=== PATIENT | female | born 1940 | race Hispanic/Latino ===

== ENCOUNTER 2019-04-30 16:28 | Observation (INO) | payer MEDICARE ==
[~2019-04-30] VITALS: Ht 162.6 cm; Wt 88.5 kg
[2019-04-30] MEDS ORDERED: SODIUM CHLORIDE 0.9% 1000ML 500 ML IV STA (16:49)
[2019-04-30 17:26] LABS: BASOPHILS % 0.1 % (0.0-1.0); HEMATOCRIT 39.6 % (34.2-44.1); HEMOGLOBIN 13.4 g/dL (12.0-16.0); LYMPHOCYTES % 6.3 % (18.0-39.1); MEAN CORPUSCULAR HGB CONC 33.8 g/dL (31-35); MEAN CORPUSCULAR VOLUME 91.7 fL (81-99); MONOCYTES # (AUTO) 0.7 (0.2-0.8); MONOCYTES % 4.5 % (4.4-11.3); NEUTROPHILS # (AUTO) 14.2 (2.1-6.9); PLATELET COUNT 261 x10e3/uL (140-360); RED BLOOD COUNT 4.32 x10e6/uL (3.6-5.1); RED CELL DISTRIBUTION WIDTH 11.9 % (11.7-14.4)
[2019-04-30 17:27] LABS: BILIRUBIN,URINE NEGATIVE (NEGATIVE); CLARITY,URINE CLEAR (CLEAR); COLOR,URINE YELLOW (YELLOW); KETONES,URINE NEGATIVE (NEGATIVE); LEUKOCYTE ESTERASE ,URINE NEGATIVE (NEGATIVE); NITRITE,URINE NEGATIVE (NEGATIVE); PROTEIN,URINE DIPSTICK NEGATIVE (NEGATIVE); URINE UROBILINOGEN 0.2 mg/dL (0.2 - 1)
[2019-04-30 17:32] LABS: INR 0.94; PROTHROMBIN TIME 13.1 seconds (11.9-14.5)
[2019-04-30 17:33] LABS: PARTIAL THROMBOPLASTIN TIME 25.9 seconds (23.8-35.5)
--- NOTE | 2019-04-30 17:35 | Diagnostic Imaging Report ---
A single frontal view of the chest. HISTORY: Hypertension COMPARISON: None available. DISCUSSION: Portable technique, limits sensitivity of the exam. Soft tissue attenuation further limits sensitivity of the exam. Tubes/Lines: None Lungs and pleura: No evidence of a consolidative pneumonia or pulmonary alveolar edema. No definite pleural effusion or pneumothorax is identified. Mild eventration versus elevation of the left hemidiaphragm with minimal adjacent atelectasis. Heart and mediastinum: The cardiomediastinal silhouette appear(s) unremarkable. Bones and soft tissues: Appear unremarkable, given this limited exam. IMPRESSION: 1. Mild eventration versus elevation of the left hemidiaphragm with minimal adjacent atelectasis. 2. Otherwise, no acute radiographic abnormality. Signed by: Dr. Jony Ibarra D.O., M.M.M. on 04/30/2019 5:31 PM
[2019-04-30 17:38] LABS: BACTERIA,URINE MODERATE /HPF; EPITHELIAL CELLS,URINE MODERATE /LPF; RBC,URINE 0-5 /HPF (0-5)
[2019-04-30 17:43] LABS: ALANINE AMINOTRANSFERASE 17 IU/L (0-55); ALBUMIN 4.3 g/dL (3.5-5.0); ALBUMIN/GLOBULIN RATIO 1.1 (0.8-2.0); ALKALINE PHOSPHATASE 125 IU/L (40-150); ANION GAP 18.7 mmol/L (8-16); BLOOD UREA NITROGEN 32 mg/dL (7-26); BUN/CREATININE RATIO 36 (6-25); CALCIUM 10.2 mg/dL (8.4-10.2); CARBON DIOXIDE 23 mmol/L (22-29); CHLORIDE 99 mmol/L (98-107); CREATINE KINASE 162 IU/L (29-168); EST GLOMERULAR FILTRATION RATE > 60 ML/MIN (60-); GLUCOSE 163 mg/dL (74-118); POTASSIUM 3.7 mmol/L (3.5-5.1); SODIUM 137 mmol/L (136-145)
--- NOTE | 2019-04-30 17:56 | Diagnostic Imaging Report ---
History:Hypertension Comparison studies:None Technique: Axial images were obtained from the skull base to the vertex. Coronal and sagittal images reconstructed from the axial data. Intravenous contrast: None Dose modulation, iterative reconstruction, and/or weight based adjustment of the mA/kV was utilized to reduce the radiation dose to as low as reasonably achievable. Findings: Scalp/skull: No abnormalities. Extra-axial spaces: No masses. No fluid collections. Brain sulci: Mildly prominent. Ventricles: Mild compensatory dilatation. No hydrocephalus. Parenchyma: Punctate calcification at the right superior temporal gyrus. Few hypodensities of the periventricular deep white matter, nonspecific and most commonly seen with mild chronic microvascular ischemic changes. No masses, hemorrhage, acute or chronic cortical vascular insults. Sellar/suprasellar region: No abnormalities. Craniocervical junction: Patent foramen magnum. No Chiari one malformation. Incidental findings: Atherosclerotic calcifications in the carotid siphons . Impression: No acute abnormalities. Chronic findings: 1. Mild supratentorial white matter small vessel ischemic changes. Signed by: DR Roger Lund M.D. on 04/30/2019 5:52 PM
[2019-04-30 18:03] LABS: THYROID STIMULATING HORMONE 0.415 uIU/mL (0.350-4.940)
[2019-04-30] MEDS ORDERED: CEFTRIAXONE SOD 1 GM/NS 50 ML 50 ML IV ONE (18:29)
[2019-04-30] MEDS ORDERED: ONDANSETRON HCL INJ 2MG/ML 2ML 2 MG/ML VIAL IV PRN (18:45)
[2019-04-30] MEDS ORDERED: CEFTRIAXONE SOD 1 GM/NS 50 ML 50 ML IV SCH (18:45)
[2019-04-30] MEDS ORDERED: MORPHINE SULFATE 2 MG/ML SYR 1ML IV PRN (18:45)
--- OUTSIDE RECORDS SUMMARY | 2019-04-30 19:04 | XMS REPORT ---
Author Author [facility] Address Unknown Phone Unavailable Care Team Providers Care [place] Supervisor Name Role Phone KUSUM JACKSON Unavailable Unavailable Problems This patient has no known problems. Allergies, Adverse Reactions, Alerts This patient has no known allergies or adverse reactions. Medications This patient has no known medications. Results Test Description Test Time Test Comments Text Results Atomic Results Result Comments CT BRAIN WO 2019-04-30 17:45:00 [place] [id number] [place] [id number] Patient Name: SOFY JACKSON MR #: [id number] : 1940 Age/Sex: 78/F Req #: [id number] Adm Physician: Ordered by: KUSUM JACKSON MD, MD Report #: [id number] Location: ER Room/Bed: Procedure: [id number] CT/CT BRAIN WO Exam Date: 04/30/19 Exam Time: 1707 REPORT STATUS: Signed History:Hypertension Comparison studies:None Technique: Axial images were obtained from the skull base to the vertex. Coronal and sagittal images reconstructed from the axial data. Intravenous contrast: None Dose modulation, iterative reconstruction, and/or weight based adjustment of the mA/kV was utilized to reduce the radiation dose to as low as reasonably achievable. Findings: Scalp/skull: No abnormalities. Extra- axial spaces: No masses. No fluid collections. Brain sulci: Mildly prominent. Ventricles: Mild compensatory dilatation. No hydrocephalus. Parenchyma: Punctate calcification at the right superior temporal gyrus. Few hypodensities of the periventricular deep white matter, nonspecific and most commonly seen with mild chronic microvascular ischemic changes. No masses, hemorrhage, acute or chronic cortical vascular insults. Sellar/suprasellar region: No abnormalities. Craniocervical junction: Patent foramen magnum. No Chiari one malformation. Incidental findings: Atherosclerotic calcifications in the carotid siphons . Impression: No acute abnormalities. Chronic findings: 1. Mild supratentorial white matter small vessel ischemic changes. Signed by: DR Roger Lund M.D. on 04/30/2019 5:52 PM Dictated By: ROGER HOANG MD 51 Transcribed By: BEVERLY on 04/30/191751 COPY TO: KUSUM JACKSON CHEST SINGLE (PORTABLE) 2019-04-30 17:21:00 [place] [id number] Patient Name: SOFY JACKSON MR #: [id number] : 1940 Age/Sex: 78/F Req #: [id number] Adm Physician: Ordered by: KUSUM JACKSON MD, MD Report #: [id number] Location: ER Room/Bed: Procedure: [id number] DX/CHEST SINGLE (PORTABLE) Exam Date: 04/30/19 Exam Time: 1713 REPORT STATUS: Signed A single frontal view of the chest. HISTORY: Hypertension COMPARISON: None available. DISCUSSION: Portable technique, limits sensitivity of the exam. Soft tissue attenuation further limits sensitivity of the exam. Tubes/Lines: None Lungs and pleura: No evidence of a consolidative pneumonia or pulmonary alveolar edema. No definite pleural effusion or pneumothorax is identified. Mild eventration versus elevation of the left hemidiaphragm with minimal adjacent atelectasis. Heart and mediastinum: The cardiomediastinal silhouette appear(s) unremarkable. Bones and soft tissues: Appear unremarkable, given this limited exam. IMPRESSION: 1. Mild eventration versus elevation of the left hemidiaphragm with minimal adjacent atelectasis. 2. Otherwise, no acute radiographic abnormality. Signed by: Dr. Royal Ibarra D.O., M.M.M. on 04/30/2019 5:31 PM Dictated By: ROYAL IBARRA DO 173 Transcribed By: AVRIL CLEANING on 04/30/191730 COPY TO: KUSUM JACKSON
[2019-04-30] MEDS: FAMOTIDINE 20 MG/2 ML VIAL IV SCH (19:18)
[2019-04-30] MEDS: ACETAMINOPHEN 325 MG TAB PO PRN (19:19)
[2019-04-30] MEDS: METOPROLOL TARTRATE 25 MG TAB PO SCH (19:19)
[2019-04-30] MEDS ORDERED: PRAVASTATIN SOD40 MG PO (19:29)
[2019-04-30] MEDS ORDERED: LOSARTAN-HCTZ1 EACH PO (19:29)
[2019-04-30] MEDS ORDERED: VERAPAMIL ER120 M1 PO (19:29)
--- NOTE | 2019-04-30 19:50 | NUR ---
Report received from MOISES clark. Patient admitted in unit @2007 by alban. Patient alert/orientedx3 Korean speaking only. Denied pain and no SOB. No respiratory distress noted. Respiration even and unlabored. Head to toe assessment completed. No skin breakdown noted. Families at the bedside. Bed in lower position and locked. Call fatima within reach. Patient and family instructed to call for help as needed. Will continue to monitor.
[2019-04-30 20:31] VITALS: BP 139/73
[2019-04-30 21:00] VITALS: BP 139/73
[2019-04-30 22:23] VITALS: BP 139/73
[2019-04-30 23:31] VITALS: BP 138/73
[2019-05-01 02:12] LABS: CREATINE KINASE MB 3.6 ng/mL (0-5.0)
[2019-05-01] MEDS: ACETAMINOPHEN 325 MG TAB PO PRN (03:39)
[2019-05-01 03:53] VITALS: BP 131/77
[2019-05-01 05:34] LABS: BASOPHILS % 0.1 % (0.0-1.0); HEMATOCRIT 33.8 % (34.2-44.1); HEMOGLOBIN 11.1 g/dL (12.0-16.0); LYMPHOCYTES # (AUTO) 1.5 (1.0-3.2); MEAN CORPUSCULAR HEMOGLOBIN 30.4 pg (28-32); MEAN CORPUSCULAR HGB CONC 32.8 g/dL (31-35); MEAN CORPUSCULAR VOLUME 92.6 fL (81-99); MONOCYTES # (AUTO) 0.8 (0.2-0.8); MONOCYTES % 5.7 % (4.4-11.3); NEUTROPHILS % 82.6 % (38.7-80.0); PLATELET COUNT 226 x10e3/uL (140-360); RED BLOOD COUNT 3.65 x10e6/uL (3.6-5.1); RED CELL DISTRIBUTION WIDTH 11.9 % (11.7-14.4)
[2019-05-01 05:50] LABS: ALANINE AMINOTRANSFERASE 14 IU/L (0-55); ALBUMIN 3.3 g/dL (3.5-5.0); ALBUMIN/GLOBULIN RATIO 1.1 (0.8-2.0); ALKALINE PHOSPHATASE 86 IU/L (40-150); ANION GAP 15.6 mmol/L (8-16); BLOOD UREA NITROGEN 24 mg/dL (7-26); BUN/CREATININE RATIO 32 (6-25); CALCIUM 9.1 mg/dL (8.4-10.2); CARBON DIOXIDE 26 mmol/L (22-29); CHLORIDE 102 mmol/L (98-107); CHOL/HDL RATIO 2.5 (3.0-3.6); CHOLESTEROL 210 MD/DL (0-199); CREATININE, SERUM 0.76 mg/dL (0.57-1.11); EST GLOMERULAR FILTRATION RATE > 60 ML/MIN (60-); GLUCOSE 119 mg/dL (74-118); HDL CHOLESTEROL 84 MG/DL (40-60); LDL CHOLESTEROL 111 MG/DL (60-130); MAGNESIUM 2.3 MG/DL (1.3-2.1); PHOSPHORUS 2.9 MG/DL (2.3-4.7); POTASSIUM 3.6 mmol/L (3.5-5.1); SODIUM 140 mmol/L (136-145); TRIGLYCERIDES 75 MG/DL (0-149)
--- NOTE | 2019-05-01 05:56 | Diagnostic Imaging Report ---
Examination: Single AP view of the chest. COMPARISON: 04/30/2019 INDICATION: Fever DISCUSSION: Lungs are well-inflated. Subsegmental atelectasis in the left lung base described on the comparison study is less conspicuous on the current radiograph. No new consolidation or effusion. Stable cardiomediastinal contour with tortuous thoracic aorta. Heart size is within normal limits for portable, AP technique. No acute osseous abnormality. IMPRESSION: No acute cardiopulmonary abnormality. Signed by: Dr. Alfredo Goodrich M.D. on 05/01/2019 5:52 AM
[2019-05-01] MEDS: METOPROLOL TARTRATE 25 MG TAB PO SCH (06:22)
[2019-05-01] MEDS: FAMOTIDINE 20 MG/2 ML VIAL IV SCH (06:22)
--- NOTE | 2019-05-01 07:07 | NUR ---
Report given to oncoming nurse,walking round done.
[2019-05-01 08:00] VITALS: BP 135/84
[2019-05-01] MEDS ORDERED: ASPIRIN 81 MG ENTERIC COATED PO SCH (09:00)
[2019-05-01] MEDS ORDERED: LOSARTAN POTASSIUM 100 MG TAB PO NR (09:30)
--- NOTE | 2019-05-01 10:55 | Discharge Summary ---
PRIMARY CARE PHYSICIAN: Uriah Villareal MD. FINAL DIAGNOSES: 1. Hypertensive urgency secondary to not taking medication as scheduled. 2. Leukocytosis, most likely reactive secondary to hypertensive urgency and stress. 3. Mild urinary tract infection. 4. Morbid obesity. 5. Dyslipidemia at baseline. SUMMARY: The patient is a 78-year-old female, who is stable, completely asymptomatic today. The patient is lying in bed. All her family member is by the bedside. The patient want to go home and I agreed. Her blood pressure has much improved. It is stable. She is symptomatic. CT scan of the brain is negative. Chest x-ray unremarkable. Lab work, the patient had leukocytosis, most likely reactive. She has a WBC of 16.1 and then down to 13.3 today. The patient is otherwise stable. No fever. No abdominal pain. No chest pain or shortness of breath. Vital signs are stable. The patient has urinary tract infection, some moderate bacteria in the urine with negative test of leukocyte esterase. The patient coagulation is normal. Discussed with the patient at length. She is asymptomatic. She does not have any abdominal pain, chest pain, or shortness of breath. The patient will need to follow up with her family doctor for a schedule visit for blood pressure medication adjustment as an outpatient. She will resume her home medication including Cardizem, lisinopril, HCTZ. Laboratory workup; chemistry panel otherwise unremarkable. The BUN and creatinine are 24 and 0.76. The patient's TSH is 0.415. Sodium level is 140, potassium 3.6, chloride 102. The patient is otherwise stable and discharged home today. MD MARCIAL Smith/RAFAELAL /[id number]
--- NOTE | 2019-05-01 11:15 | NUR ---
Patient discharged home verbalized understanding of discharge instructions.
[2019-05-01] MEDS ORDERED: CEFTRIAXONE SOD 1 GM/NS 50 ML 50 ML IV SCH (18:00)
[2019-05-01] MEDS ORDERED: PRAVASTATIN 20 MG TAB PO SCH (21:00)
[2019-05-02] MEDS ORDERED: VERAPAMIL HCL 120 MG TABSR PO SCH (09:00)
[2019-05-02] MEDS ORDERED: LOSARTAN POTASSIUM 100 MG TAB PO SCH (09:00)
== END 2019-05-01 11:18 | disposition home or self-care (01) ==
LOC: ER 16:28 → ERHOLD 19:01 → IMCU 20:06
PROVIDERS: ADMIT Internal Medicine; ATTEND Internal Medicine
DX: I16.0 Hypertensive urgency (principal); Z91.14 Patient's other noncompliance with medication regimen; N39.0 Urinary tract infection, site not specified; D72.823 Leukemoid reaction; I10 Essential (primary) hypertension; E66.01 Morbid (severe) obesity due to excess calories; Z68.33 Body mass index [BMI] 33.0-33.9, adult; E78.5 Hyperlipidemia, unspecified
CPT/HCPCS: 36415; 70450; 71045 ×2; 80053 ×2; 80061; 81001; 82550 ×2; 82553 ×2; 83735; 83880; 84100; 84443; 84484 ×2; 85025 ×2; 85610; 85730; 87040; 87086; 93005; 99284; G0378 ×2; J0696; J7030